=== PATIENT | male | born 1985 | race Caucasian/White ===

== ENCOUNTER 2019-05-22 23:10 | Emergency (ER) | payer OTHER ==
[~2019-05-22] VITALS: Ht 177.8 cm; Wt 97.7 kg
[2019-05-23] MEDS ORDERED: GI COCKTAIL 50ML BTL(HYOSCYAMINE/MAALOX/LIDOCAINE VISCOUS)(1:3:1) PO ONE
[2019-05-23 00:13] LABS: BASO # 0.1 10^3/uL (0.0-0.2); BASO % 1.4 % (0.0-1.0); EOS # 0.2 10^3/uL (0.0-0.5); EOS % 2.1 % (0.0-3.0); HEMOGLOBIN 16.6 g/dl (13.5-17.5); LYMPH % 37.2 % (24.0-44.0); MEAN CORPUSCULAR HEMOGLOBIN 27.9 pg (27.0-33.0); MEAN CORPUSCULAR HGB CONC 34.6 g/dl (32.0-36.5); MEAN CORPUSCULAR VOLUME 80.7 fl (80.0-96.0); MONO # 0.5 10^3/uL (0.0-0.8); MONO % 5.8 % (0.0-5.0); NEUTROPHILS # 4.3 10^3/uL (1.5-8.5); NEUTROPHILS % 52.6 % (36.0-66.0); PLATELET COUNT, AUTOMATED 264 10^3/uL (150-450); RED BLOOD COUNT 5.95 10^6/uL (4.30-6.10); WHITE BLOOD COUNT 8.1 10^3/uL (4.0-10.0)
[2019-05-23 00:23] LABS: BLOOD UREA NITROGEN 13 MG/DL (7-18); CALCIUM LEVEL 9.2 MG/DL (8.5-10.1); CARBON DIOXIDE LEVEL 27 MEQ/L (21-32); CHLORIDE LEVEL 104 MEQ/L (98-107); CPK CREATINE PHOSPHOKINASE 81 U/L (39-308); GLOMERULAR FILTRATION RATE > 60.0 (>60); GLUCOSE, FASTING 124 MG/DL (70-100); MB/CK RELATIVE INDEX 1.23 (< OR =4); POTASSIUM SERUM 4.1 MEQ/L (3.5-5.1); SODIUM LEVEL 138 MEQ/L (136-145); TROPONIN I < 0.02 NG/ML (< 0.10)
[2019-05-23 00:47] VITALS: BP 162/83
[2019-05-23] MEDS ORDERED: OMEPRAZOLE 20 MG CAP PO ONE (01:30)
[2019-05-23] MEDS ORDERED: OMEP40CA97 PO (01:34)
--- NOTE | 2019-05-23 08:00 | REP ---
Clinical: Constipation. Technique: Three views of the abdomen and pelvis. Findings: Bowel gas pattern is nonspecific and without obstruction or perforation. No organomegaly. No abnormal calcifications. Skeletal structures are intact. Evidence of prior ventral hernia repair. Impression: Nonspecific bowel gas pattern. Electronically Signed by Maurice Gomez MD 05/23/2019 07:46 A
--- NOTE | 2019-05-23 08:00 | REP ---
Clinical: Chest pain . Comparison: 03/06/2011 . Findings: The mediastinum and cardiac silhouette are stable and within normal limits for portable technique. The lung jones are clear without acute consolidation, effusion, or pneumothorax. Skeletal structures are intact. Impression: No acute cardiopulmonary process appreciated. Electronically Signed by Maurice Gomez MD 05/23/2019 07:44 A
--- NOTE | 2019-05-25 08:42 | ECGEPIP ---
[facility] - ED Test Date: 2019-05-22 Pat Name: WILMAR BUSCH Department: Room: - Gender: Male [employer]: sb : 1985 Requested By: AMADA Collazo Order Number: [id number] Reading MD: Christian Lozano Measurements Intervals [place] Rate: 78 P: 60 MO: 197 QRS: -1 QRSD: 101 T: 32 QT: 373 QTc: 427 Interpretive Statements SINUS RHYTHM WITH SINUS ARRHYTHMIA BASELINE ARTIFACT AFFECTS INTERPRETATION NO PRIORS FOR COMPARISON Electronically Signed on 05-25-2019 8:42:33 EST by Christian Lozano
== END 2019-05-23 01:58 | disposition home or self-care (01) ==
LOC: M ED 23:10
DX: K21.9 Gastro-esophageal reflux disease without esophagitis (principal); R94.31 Abnormal electrocardiogram [ECG] [EKG]; Z98.890 Other specified postprocedural states; Z88.0 Allergy status to penicillin